=== PATIENT | male | born 1955 | race African-American/Black ===

== ENCOUNTER → 2018-04-06 | Outpatient (CLI) | payer OTHER | END | disposition home or self-care (01) | LOC: PNCL 08:24 | DX: M25.512 Pain in left shoulder (principal); I10 Essential (primary) hypertension; M19.90 Unspecified osteoarthritis, unspecified site; M48.02 Spinal stenosis, cervical region; M47.892 Other spondylosis, cervical region; N40.0 Benign prostatic hyperplasia without lower urinary tract symptoms; Z87.891 Personal history of nicotine dependence | CPT/HCPCS: 99214 ==

== ENCOUNTER → 2018-08-17 | Outpatient (CLI) | payer OTHER ==
[~2018-08-17] MED LIST: DOCU-150 PO; HYDR12.53 PO; OMEP40CA5 PO; OXYC-327 PO; TAMS0.4C2 PO
--- NOTE | 2018-08-17 17:54 | RAD ---
Abdomen, 2 views, 08/17/2018: HISTORY: Abdominal bloating Gas is present in large and small bowel in a nonspecific pattern. A bowel loop extends up beneath the right hemidiaphragm laterally. No free air seen in the abdomen. There is no evidence of organomegaly. Mild scattered degenerative changes are present in the spine. IMPRESSION: No acute abdominal abnormality is detected. Electronically signed by: Matty Mckeon MD (08/17/2018 5:50 PM) [facility]
== END | disposition home or self-care (01) ==
LOC: RAD 11:21
PROVIDERS: ATTEND Surgery
DX: R14.0 Abdominal distension (gaseous) (principal); R14.3 Flatulence; R14.2 Eructation
CPT/HCPCS: 74021